=== PATIENT | male | born 1965 | race Caucasian/White ===

== ENCOUNTER 2018-01-22 10:12 | Outpatient (REF) | payer MEDICAID, SELFPAY ==
[2018-01-22 12:41] LABS: Hemoglobin A1C 6.9 % (4.5-6.2)
[2018-01-22 13:05] LABS: ALT 37 U/L (12-78); AST 18 U/L (15-37); Albumin 3.6 g/dL (3.4-5.0); Alkaline Phosphatase 100 U/L (46-116); Anion Gap 9.3 mmol/L (3-11); BUN 15 mg/dL (7-18); Bilirubin, Total 0.3 mg/dL (0.2-1.0); CO2 26.7 mmol/L (21.0-32.0); CREATININE 0.94 mg/dL (0.70-1.30); Calcium 9.2 mg/dL (8.5-10.1); Chloride 102 mmol/L (98-107); Cholesterol 150 mg/dL (50-200); Glucose 140 mg/dL (70-100); HDL Cholesterol 40 mg/dL (40-60); LDL CHOLESTEROL 97 mg/dL (<100); Magnesium 1.9 mg/dL (1.8-2.4); Potassium 4.6 mmol/L (3.5-5.1); Sodium 138 mmol/L (136-145); Total Protein 6.5 g/dL (6.4-8.2); Triglyceride 88 mg/dL (30-150)
== END 2018-01-22 10:32 ==
LOC: NCHCN 10:12
PROVIDERS: PCP Family Medicine; Visit Provider Family Medicine
DX: E11.9 Type 2 diabetes mellitus without complications (principal); E78.5 Hyperlipidemia, unspecified
CPT/HCPCS: 80053; 80061; 83721; 83036; 83735

== ENCOUNTER 2018-03-26 15:28 | Outpatient (REF) | payer MEDICAID, SELFPAY ==
[2018-03-28 09:30] LABS: HIV-1/2 Ag & Ab Screen Negative (NEGAT)
[2018-03-28 11:25] LABS: Syphilis Serology (RPR) Negative (Negative)
[2018-03-28 12:12] LABS: HSV Type 1 Ab, IgG Positive; HSV Type 2 Ab, IgG Negative
== END 2018-03-26 15:48 ==
LOC: NCHCN 15:28
PROVIDERS: PCP Family Medicine; Visit Provider Family Medicine
DX: Z11.4 Encounter for screening for human immunodeficiency virus [HIV] (principal); Z11.59 Encounter for screening for other viral diseases
CPT/HCPCS: 87389; 86592; 86695; 86696